=== PATIENT | male | born 1980 | race Caucasian/White ===

== ENCOUNTER 2020-05-14 13:24 | Emergency (ER) | payer BC, OTHER ==
--- NOTE | 2020-05-14 14:20 | EDM.PDOC ---
ED HPI GENERAL MEDICAL PROBLEM - General Chief Complaint: Respiratory Problem Stated Complaint: Chest tightness Time Seen by Provider: 05/14/20 14:15 - History of Present Illness INITIAL COMMENTS - FREE TEXT/NARRATIVE: 39-year-old male presents the emergency room with chest tightness associated with COVID. The patient was diagnosed with COVID on Sunday and he has developed some gradual onset chest tightness he has a hard time describing it sometimes when he takes a deep breath and he notices a cool sensation with the air. He has had a temperature as high as 100.4. He does not feel short of breath. When he was diagnosed with this he was started on a nebulizer with duo nebs this might be helping a little bit. He does not have an underlying history of reactive airway disease. He has not had any associated GI symptoms with this. - Related Data Allergies Allergy/AdvReac Type Severity Reaction Status Date / Time No Known Allergies Allergy Verified 05/14/20 14:13 Home Meds: Home Meds Albuterol/Ipratropium [DuoNeb 3.0-0.5 MG/3 ML] 1 inh INH DAILY 05/14/20 [History] dexAMETHasone [Decadron] 8 mg PO BID #8 tablet 05/14/20 [Rx] Past Medical History - Past Health History Medical/Surgical History: Denies Medical/Surgical History Social & Family History - Living Situation & Occupation Living situation: Reports: , with Family Occupation: Employed ED ROS GENERAL - Review of Systems Review Of Systems: See Below Constitutional: Reports: Fever, Chills HEENT: Reports: No Symptoms Respiratory: Reports: Cough, Other (He has vague discomfort he has a hard time describing but it is not reproducible it is not aggravated by deep breathing and it is not sharp). Denies: Wheezing, Sputum Cardiovascular: Reports: No Symptoms GI/Abdominal: Reports: No Symptoms : Reports: No Symptoms Musculoskeletal: Reports: No Symptoms Skin: Reports: No Symptoms Neurological: Reports: No Symptoms Psychiatric: Reports: No Symptoms Hematologic/Lymphatic: Reports: No Symptoms ED EXAM, GENERAL - Physical Exam Exam: See Below Exam Limited By: No Limitations General Appearance: Alert, No Apparent Distress, Other (Good O2 saturation vital signs otherwise stable except his pulse is a little fast) Eye Exam: Bilateral Eye: Normal Inspection Ears: Normal External Exam, Normal Canal, Hearing Grossly Normal, Normal TMs Nose: Normal Inspection, Normal Mucosa, No Blood Throat/Mouth: Normal Inspection, Normal Lips, Normal Teeth, Normal Gums, Normal Oropharynx, Normal Voice, No Airway Compromise Head: Atraumatic, Normocephalic Neck: Normal Inspection, Supple, Non-Tender, Full Range of Motion Respiratory/Chest: No Respiratory Distress, Lungs Clear, Normal Breath Sounds, No Accessory Muscle Use, Chest Non-Tender Cardiovascular: Normal Peripheral Pulses, Regular Rate, Rhythm, No Edema, No Gallop, No JVD, No Murmur, No Rub GI/Abdominal: Normal Bowel Sounds, Soft, Non-Tender, No Organomegaly, No Distention, No Abnormal Bruit, No Mass (Male) Exam: No Hernia, Normal Inspection, Normal Prostate, Circumcised Back Exam: Normal Inspection. No: CVA Tenderness (L), CVA Tenderness (R) Extremities: Normal Inspection, No Pedal Edema Neurological: Alert, Oriented, Normal Cognition Course - Vital Signs Last Recorded V/S: Last Vital Signs Temp 36.8 C 05/14/20 14:16 Pulse 113 H 05/14/20 14:16 Resp 18 05/14/20 14:16 BP 155/89 H 05/14/20 14:16 Pulse Ox 97 05/14/20 14:16 - Re-Assessments/Exams Free Text/Narrative Re-Assessment/Exam: 05/14/20 15:05 We discussed the patient's symptoms and generally what we see with COVID infections we discussed the possibility of doing further evaluation at this time and understanding there is a small risk of missing some if we do not the pa tient would rather bypass this at this time which I think is very reasonable. He agrees to return if his condition worsens. I did discuss the situation with Dr. Brooke and we discussed starting him on dexamethasone and agreed to reasonable place to start would be 8 mg twice daily for 2 days. Departure - Departure Time of Disposition: 15:06 Disposition: Home, Self-Care 01 Clinical Impression: COVID-19 - Discharge Information Referrals: Lance Fox MD [Primary Care Provider] - Forms: ED Department Discharge Additional Instructions: Return to the emergency room with any questions problems or worsening symptoms. Take the dexamethasone as directed you will be on 8 mg twice daily for 2 days. Sepsis Event Note (ED) - Focused Exam Vital Signs: Vital Signs Temp Pulse Resp BP Pulse Ox 05/14/20 14:16 36.8 C 113 H 18 155/89 H 97
[2020-05-14 14:25] VITALS: BP 155/89; PULSE 113
== END 2020-05-14 15:45 | disposition home or self-care (01) ==
LOC: JD.ED 13:24
DX: U07.1 COVID-19 (principal)
CPT/HCPCS: 99283; 99284